=== PATIENT | female | born 1960 | race Caucasian/White ===

== ENCOUNTER → 2024-01-22 10:53 | Outpatient (REF) | payer OTHER, SELFPAY | LOC: HWWDC 10:53 | PROVIDERS: ATTENDING PHYSICIAN Nurse Practitioner Adult Health; FAMILY PHYSICIAN Internal Medicine | DX: Z12.31 Encounter for screening mammogram for malignant neoplasm of breast (principal) | CPT/HCPCS: 77063; 77067 ==

== ENCOUNTER → 2024-05-22 15:26 | Outpatient (REF) | payer OTHER, SELFPAY | LOC: PAVMRI 15:26 | PROVIDERS: ATTENDING PHYSICIAN Nurse Practitioner Adult Health | DX: S46.212A Strain of muscle, fascia and tendon of other parts of biceps, left arm, initial encounter (principal); M75.22 Bicipital tendinitis, left shoulder; M79.602 Pain in left arm | CPT/HCPCS: 73221 ==

== ENCOUNTER 2024-06-29 13:44 | Emergency (ER) | payer OTHER, SELFPAY ==
--- NOTE | 2024-06-29 14:47 | ED.GENMED ---
History of Present Illness
General
Chief Complaint: Abdominal Pain
Source: patient and spouse
Exam Limitations: none
Time Seen by Provider: 06/29/24 14:38
Nursing documentation reviewed up to this point in time: agreed with
History of Present Illness
History of Present Illness:
64-year-old female with history as documented presents to the emergency room for evaluation of abdominal pain. Patient reports onset of symptoms around 6 days ago and they have been constant and generally worsening since that time. Initially she
had achy pain left lower quadrant now has become more intense sharp pain. No clear triggering or relieving factors noted. Associated with anorexia and nausea but no vomiting. No diarrhea or constipation�had a normal bowel movement earlier today.
Denies any dysuria, hematuria, change in urinary frequency. She says that a few days ago she felt subjective fever but has not had fever/chills since. She denies any other complaints. She says that she had a similar episode earlier this year and
was treated empirically by her primary doctor for diverticulitis, does not believe she had CT scan at that time. She reports prior history of appendectomy. She notes that she had recent elective cosmetic procedure for fat transfer from abdomen to
face.
Past History
Past History
ED Past Medical History: None and Other (Status post appendectomy 2010, breast augmentation)
ED Past Surgical History: Appendectomy (2010) and Other (Breast augmentation)
Social History
Tobacco: Non-smoker
Alcohol: Occasional
Personal:
Living: with family
Employment: Employed (Nurse at [employer])
Family History
Family History: Other (Noncontributory)
Review of Systems
Review of Systems
All Other Systems: ROS reviewed and negative except as documented in HPI and ROS
Constitutional: Reports fatigue; Denies fever or chills
Respiratory: Denies trouble breathing
Cardiac: Denies chest pain or palpitations
ABD/GI: Reports abdominal pain, nausea and anorexia; Denies vomiting, diarrhea or constipated
: Denies dysuria, frequency or flank pain
Musculoskeletal: Denies neck pain or back pain
Neurological: Denies headache
Phy Exam
Physical Exam
Physical Exam:
General: Awake, alert, oriented x3; no acute distress
Head: Normocephalic, atraumatic
Eyes: Conjunctiva normal, sclera anicteric, some infraorbital bruising from recent cosmetic fat transfer procedure
Throat: Airway intact, handling secretions
Neck: Trachea midline, supple without meningismus
Lungs: Clear to auscultation bilaterally, no wheezing, rales, rhonchi
Heart: Regular rate and rhythm, no murmurs, gallops, or rubs
Abd: Soft, non distended, tender to palpation across lower abdomen left greater than right; no peritoneal signs or masses; she has a tiny umbilical superficial incision well-healed from recent cosmetic fat transfer procedure
Back: No CVA tenderness
Neuro: No gross deficits
Extremities: Warm and well-perfused
Scores
Heart Failure Risk
Heart Failure Risk Score: Not Applicable
Heart Score for Chest Pain Patients
STEMI patient?: Not applicable
Withdrawal Assessment of Alcohol
Withdrawal Assessment Completed?: Not applicable
Course
Orders/Labs/Results
Orders:
Orders
06/29/24 14:39
CT Abd/pelvis W Iv Cont Urgent
Comment:
Reason For Exam: LLQ abd pain
06/29/24 14:46
0.9% Sodium Chloride 1000 ml [Nss] 1,000 ml IV BOLUS
Ketorolac [Toradol] 15 mg IV NOW STA
06/29/24 15:20
Complete Blood Count/With Diff Urgent
Comprehensive Metabolic Panel Urgent
06/29/24 16:39
Urinalysis Reflex To Culture Urgent
Date Specimen was Collected: 06/29/24
Time Specimen was Collected: 16:28
06/29/24 17:15
Morphine Sulfate 4 mg IV NOW STA
06/29/24 17:16
Ciprofloxacin HCl [Cipro] 500 mg PO ONCE ONE
MetroNIDAZOLE [Flagyl] 500 mg PO NOW STA
Abnormal Lab Results
06/29/24
15:20
Hct 35.8 L %
(37.0-47.0)
MPV 10.5 H fL
(7.4-10.4)
Abs Immat Gran (auto) 0.1 H 10^3/uL
(0-0.05)
Absolute Monos (auto) 0.8 H 10^3/uL
(0.1-0.6)
Immature Gran % 1.5 H %
(0-0.5)
Lymphocytes % 18.7 L %
(20.5-51.1)
Glucose 103 H mg/dl
(70-99)
Total Protein 5.8 L g/dl
(6.3-8.2)
Albumin 3.3 L g/dl
(3.5-5.0)
06/29/24 15:20
06/29/24 15:20
Vital Signs
Initial and Last Documented VS:
Initial Vital Signs
Temp Pulse Resp Pulse Ox
36.7 C 94 18 98
06/29/24 13:54 06/29/24 13:54 06/29/24 13:54 06/29/24 13:54
Last Documented Vital Signs
Temp Pulse Resp BP Pulse Ox
36.7 C 94 18 102/64 100
06/29/24 13:54 06/29/24 13:54 06/29/24 13:54 06/29/24 15:00 06/29/24 15:30
MDM/Problems Addressed
Differential Diagnosis Includes:
Diverticulitis, nephrolithiasis, UTI, colitis
MDM/Problems Addressed:
64-year-old female presents to the emergency room for evaluation of left lower quadrant abdominal pain for the past 6 days. Generally worsening. Vital signs normal. Exam as above. Check labs including a CBC and a CMP, urinalysis. Check CT
abdomen and pelvis. Treat pain and provide fluids. Reassess at the above.
Labs reviewed: CBC and CMP unremarkable. Urinalysis negative for infection. CT abdomen pelvis shows acute uncomplicated diverticulitis. Treat with antibiotics. Clinical reassessment after Toradol only marginal improvement in pain still having
significant amount of pain. Will treat with morphine and reassess.
Patient's pain was well-controlled after morphine. Vitals have been stable. She does not appear to be septic. No signs of perforation or abscess on CT. Spoke to the patient I offered admission for treatment versus trial of outpatient antibiotics
and pain control. 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 She feels very comfortable with this. All questions answered.
*Radiology
Radiology exam reviewed: radiology read reviewed
*Pulse Oximetry
Patient hypoxic: no
*Critical Care Note
Total Time (30-74mins, 75-104mins- exclusive of procedures): Not Applicable
Data Reviewed
Source: patient, records and spouse
ED Attending Note
-
Portions of this chart may have been created with voice recognition software.� Occasional wrong word or��sound alike� substitutions may have occurred due to the inherent limitations of voice recognition software.
Discharge Plan
Departure
Patient Disposition: Home (Routine Discharge)
Date of Disposition: 06/29/24
Time of Disposition: 18:36
Patient with high blood pressure during this ER visit?: No
Discharge Problem:
Diverticulitis
Instructions: Diverticulitis (DC)
Prescriptions:
New
ciprofloxacin HCl 500 mg tablet
500 mg PO BID Qty: 20 0RF
metronidazole 500 mg tablet
500 mg PO TID Qty: 30 0RF
oxycodone 5 mg tablet
5 mg PO TID PRN (Reason: Pain) Qty: 14 0RF
No Action
multivitamin [One Daily Multivitamin] 1 EACH tablet
1 ea PO DAILY
ascorbate calcium (vitamin C) 500 MG tablet
500 mg PO DAILY
aspirin [Adult Aspirin Regimen] 81 MG tablet,delayed release (DR/EC)
81 mg PO DAILY
cholecalciferol (vitamin D3) [Vitamin D3] 1,000 UNIT capsule
1,000 unit PO DAILY
L.acidoph, paracasei,B. lactis 1 EACH capsule
1 cap PO DAILY
diclofenac sodium 75 MG tablet,delayed release (DR/EC)
75 mg PO BID Qty: 14 0RF
Referrals:
Shawn Carroll MD [Family Provider] - Follow up in 5-7 days
Activity Restrictions/Additional Instructions:
Thank you for visiting the Emergency Department at [facility].
1. Please schedule a follow up appointment as directed. Call first thing tomorrow morning to make an appointment.
2. If indicated, please take your medications as instructed and indicated on discharge paperwork.
3. If any of your symptoms do not improve, or persist, or become more severe within 6-12 hours, please return to the emergency department for further care.
4. Please return to the emergency department if you develop a headache, neck pain/stiffness, fever greater than 100.4F, chest pain, shortness of breath, persistent nausea, vomiting, slurred speech, difficulty walking, numbness/tingling, weakness,
signs of infection or any other symptoms that are worrisome to you.
Please call [phone] if you have any questions.
Discharge Date and Time
Print Language: LITHUANIAN
[2024-06-29 15:00] VITALS: BP 102/64
[2024-06-29] MEDS: NSS 1000 IV (15:00)
[2024-06-29] MEDS: TORADOL 15 MG IV (15:15)
[2024-06-29 15:28] LABS: % Basophils 0.4 % (0-2); % Eosinophils 2.4 % (0-6); % Immature Granulocytes 1.5 % (0-0.5); % Lymphocytes 18.7 % (20.5-51.1); % Monocytes 8.3 % (1.7-9.3); % Neutrophils 68.7 % (42.2-75.2); Absolute Eosinophils 0.2 10^3/uL (0-0.7); Absolute Immature Granulocytes 0.1 10^3/uL (0-0.05); Absolute Lymphocytes 1.7 10^3/uL (1.2-3.4); Absolute Monocytes 0.8 10^3/uL (0.1-0.6); Absolute Neutrophils 6.3 10^3/uL (1.4-6.5); Hematocrit 35.8 % (37.0-47.0); Hemoglobin 12.5 g/dL (12.0-16.0); Mean Corp Hgb Conc. 34.9 g/dL (33.0-37.0); Mean Corpuscular Hgb 29.1 pg (27.0-31.0); Mean Corpuscular Volume 83.3 fL (81.0-99.0); Mean Platelet Volume 10.5 fL (7.4-10.4); Nucleated Red Blood Cells % 0 %; Platelet Count 182 10^3/uL (130-400); Red Cell Dist. Width 13.8 % (11.5-14.5); White Blood Cell Count 9.2 10^3/uL (4.8-10.8)
[2024-06-29 15:51] LABS: ALT (SGPT) 20 U/L (0-35); AST (SGOT) 25 U/L (14-36); Albumin 3.3 g/dl (3.5-5.0); Alkaline Phosphatase 54 U/L (38-126); Blood Urea Nitrogen 14 mg/dl (7-17); Calcium 8.8 mg/dl (8.4-10.2); Carbon Dioxide 23 mmol/L (22-30); Chloride 104 mmol/L (98-107); Glucose 103 mg/dl (70-99); Potassium 3.8 mmol/L (3.5-5.1); Sodium 137 mmol/L (135-145); Total Bilirubin 0.7 mg/dl (0.2-1.3); Total Protein 5.8 g/dl (6.3-8.2); eGFR > 60.00
[2024-06-29 16:47] LABS: Urine Albumin Negative (Neg - Trace); Urine Bilirubin Negative (Negative); Urine Character Clear (Clear); Urine Color Yellow; Urine Glucose Negative (Negative); Urine Ketone Negative (Negative); Urine Leukocyte Negative (Negative); Urine Nitrite Negative (Negative); Urine Occult Blood Negative (Negative); Urine Specific Gravity 1.005 (<1.030); Urine Urobilinogen Negative (Neg - 1+)
[2024-06-29] MEDS: MORPHINE SULFATE 4 MG IV (18:03)
[2024-06-29] MEDS: CIPRO 500 MG PO (18:03)
[2024-06-29] MEDS: FLAGYL 500 MG PO (18:03)
[2024-06-29 18:12] VITALS: BP 106/56
== END 2024-06-29 18:59 | disposition home or self-care (01) ==
LOC: EMR 13:44
PROVIDERS: EMERGENCY PHYSICIAN Emergency Medicine; FAMILY PHYSICIAN Internal Medicine
DX: K57.32 Diverticulitis of large intestine without perforation or abscess without bleeding (principal)
CPT/HCPCS: 99285; 96374; 96375; 96361; 74177; 80053; 81003; 85025; Q9967

== ENCOUNTER → 2024-08-18 08:18 | Outpatient (REF) | payer OTHER, SELFPAY ==
[2024-08-18 09:57] LABS: Hematocrit 38.4 % (37.0-47.0); Hemoglobin 13.2 g/dL (12.0-16.0); Mean Corp Hgb Conc. 34.4 g/dL (33.0-37.0); Mean Corpuscular Hgb 29.7 pg (27.0-31.0); Mean Corpuscular Volume 86.5 fL (81.0-99.0); Mean Platelet Volume 10.3 fL (7.4-10.4); Platelet Count 190 10^3/uL (130-400); Red Blood Cell Count 4.44 10^6/uL (4.20-5.40); Red Cell Dist. Width 14.1 % (11.5-14.5); White Blood Cell Count 5.3 10^3/uL (4.8-10.8)
[2024-08-18 10:06] LABS: ALT (SGPT) 31 U/L (0-35); AST (SGOT) 41 U/L (14-36); Albumin 3.5 g/dl (3.5-5.0); Alkaline Phosphatase 38 U/L (38-126); Blood Urea Nitrogen 21 mg/dl (7-17); Calcium 9.4 mg/dl (8.4-10.2); Carbon Dioxide 25 mmol/L (22-30); Chloride 106 mmol/L (98-107); Glucose 87 mg/dl (70-99); HDL Cholesterol 51 mg/dl; LDL Cholesterol, Calculated 162 mg/dl; Potassium 4.4 mmol/L (3.5-5.1); Sodium 142 mmol/L (135-145); Total Bilirubin 0.8 mg/dl (0.2-1.3); Total Cholesterol 231 mg/dl (50-199); Triglyceride 91 mg/dl (10-149); Very Low Density Lipoprotein 18 mg/dl (0-30); eGFR > 60.00
[2024-08-18 10:34] LABS: TSH Reflex To Free T4 4.29 uIU/ml (0.47-4.68)
[2024-08-18 10:55] LABS: % Basophils 1.1 % (0-2); % Eosinophils 7.5 % (0-6); % Immature Granulocytes 0.2 % (0-0.5); % Lymphocytes 51.8 % (20.5-51.1); % Neutrophils 30.4 % (42.2-75.2); Absolute Basophils 0.1 10^3/uL (0-0.2); Absolute Eosinophils 0.4 10^3/uL (0-0.7); Absolute Lymphocytes 2.8 10^3/uL (1.2-3.4); Absolute Monocytes 0.5 10^3/uL (0.1-0.6); Absolute Neutrophils 1.6 10^3/uL (1.4-6.5); Nucleated Red Blood Cells % 0 %
== END ==
LOC: HWLAB 08:18
PROVIDERS: ATTENDING PHYSICIAN Nurse Practitioner Adult Health
DX: Z00.00 Encounter for general adult medical examination without abnormal findings (principal)
CPT/HCPCS: 36415; 80053; 80061; 84443; 85025

== ENCOUNTER → 2024-08-21 10:26 | Outpatient (REF) | payer OTHER, SELFPAY ==
[2024-08-21 12:20] LABS: % Basophils 1.3 % (0-2); % Eosinophils 9.5 % (0-6); % Immature Granulocytes 0.2 % (0-0.5); % Lymphocytes 45.7 % (20.5-51.1); % Monocytes 8.3 % (1.7-9.3); Absolute Basophils 0.1 10^3/uL (0-0.2); Absolute Eosinophils 0.6 10^3/uL (0-0.7); Absolute Lymphocytes 2.8 10^3/uL (1.2-3.4); Absolute Monocytes 0.5 10^3/uL (0.1-0.6); Absolute Neutrophils 2.2 10^3/uL (1.4-6.5); Hematocrit 39.3 % (37.0-47.0); Hemoglobin 13.4 g/dL (12.0-16.0); Mean Corp Hgb Conc. 34.1 g/dL (33.0-37.0); Mean Corpuscular Hgb 29.5 pg (27.0-31.0); Mean Corpuscular Volume 86.4 fL (81.0-99.0); Mean Platelet Volume 10.6 fL (7.4-10.4); Nucleated Red Blood Cells % 0 %; Platelet Count 189 10^3/uL (130-400); Red Blood Cell Count 4.55 10^6/uL (4.20-5.40); Red Cell Dist. Width 14.1 % (11.5-14.5); White Blood Cell Count 6.1 10^3/uL (4.8-10.8)
[2024-08-21 12:34] LABS: Creatine Phosphokinase 57 U/L (30-135)
[2024-08-21 12:39] LABS: C-Reactive Protein < 5.00 mg/L (0.0-10.00)
[2024-08-21 13:09] LABS: TSH Reflex To Free T4 5.07 uIU/ml (0.47-4.68)
[2024-08-21 13:39] LABS: Free T4 0.77 ng/dl (0.78-2.19)
[2024-08-21 13:48] LABS: Erythrocyte Sed Rate 16 mm/hour (0-20)
[2024-08-22 12:22] LABS: Lyme Antibody Screen, EIA Negative (Negative)
[2024-08-23 19:28] LABS: ANA, IgG Reflex to HEp-2 Detected (None Detected)
[2024-08-23 23:34] LABS: SSA 52 (Ro)(ENA) Ab, IgG 3 AU/mL (0-40); SSA 60 (Ro)(ENA) Ab, IgG 1 AU/mL (0-40); SSB (La)(ENA) Ab, IgG 0 AU/mL (0-40); Scleroderma Antibody (Scl-70) 1 AU/mL (0-40)
== END ==
LOC: HWLAB 10:26
PROVIDERS: ATTENDING PHYSICIAN Nurse Practitioner Adult Health
DX: M25.50 Pain in unspecified joint (principal); M79.10 Myalgia, unspecified site
CPT/HCPCS: 36415; 82550; 84439; 84443; 85025; 85652; 86038; 86140; 86235; 86430; 86618

== ENCOUNTER → 2024-09-04 12:08 | Outpatient (REF) | payer OTHER, SELFPAY ==
[2024-09-04 16:02] LABS: Free T4 0.89 ng/dl (0.78-2.19); Total Thyroxine 5.83 ug/dl (5.5-11.0)
[2024-09-04 16:15] LABS: TSH 6.25 uIU/ml (0.47-4.68)
[2024-09-06 18:34] LABS: Thyroglobulin Antibodies <0.9 IU/mL (0.0-4.0); Thyroid Peroxidase Ab (TPO) <0.3 IU/mL (0.0-9.0)
== END ==
LOC: HWLAB 12:08
PROVIDERS: ATTENDING PHYSICIAN Nurse Practitioner Adult Health
DX: R06.09 Other forms of dyspnea (principal); M25.50 Pain in unspecified joint; R79.89 Other specified abnormal findings of blood chemistry
CPT/HCPCS: 36415; 71046; 84436; 84439; 84443; 84481; 86376; 86430; 86800

== ENCOUNTER → 2024-10-23 10:51 | Outpatient (REF) | payer OTHER, SELFPAY ==
[2024-10-23 15:40] LABS: ALT (SGPT) 48 U/L (0-35); AST (SGOT) 58 U/L (14-36); Albumin 3.3 g/dl (3.5-5.0); Alkaline Phosphatase 57 U/L (38-126); Blood Urea Nitrogen 16 mg/dl (7-17); Calcium 9.1 mg/dl (8.4-10.2); Carbon Dioxide 26 mmol/L (22-30); Chloride 105 mmol/L (98-107); Glucose 78 mg/dl (70-99); Potassium 4.1 mmol/L (3.5-5.1); Sodium 136 mmol/L (135-145); Total Bilirubin 0.5 mg/dl (0.2-1.3); Total Protein 5.7 g/dl (6.3-8.2); eGFR > 60.00
[2024-10-23 15:43] LABS: C-Reactive Protein < 5.00 mg/L (0.0-10.00)
[2024-10-23 16:02] LABS: % Basophils 0.9 % (0-2); % Eosinophils 10.3 % (0-6); % Immature Granulocytes 0.5 % (0-0.5); % Lymphocytes 40.3 % (20.5-51.1); % Monocytes 6.5 % (1.7-9.3); % Neutrophils 41.5 % (42.2-75.2); Absolute Basophils 0.1 10^3/uL (0-0.2); Absolute Eosinophils 0.7 10^3/uL (0-0.7); Absolute Lymphocytes 2.6 10^3/uL (1.2-3.4); Absolute Monocytes 0.4 10^3/uL (0.1-0.6); Absolute Neutrophils 2.7 10^3/uL (1.4-6.5); Hematocrit 37.6 % (37.0-47.0); Hemoglobin 12.4 g/dL (12.0-16.0); Mean Corpuscular Volume 87.9 fL (81.0-99.0); Mean Platelet Volume 10.7 fL (7.4-10.4); Nucleated Red Blood Cells % 0 %; Platelet Count 185 10^3/uL (130-400); Red Blood Cell Count 4.28 10^6/uL (4.20-5.40); Red Cell Dist. Width 13.2 % (11.5-14.5); White Blood Cell Count 6.4 10^3/uL (4.8-10.8)
[2024-10-23 17:38] LABS: Erythrocyte Sed Rate 7 mm/hour (0-20)
[2024-10-26 06:59] LABS: ANA, IgG Reflex to HEp-2 Detected (None Detected)
[2024-10-26 07:04] LABS: CCP Antibody IgG/IgA 3 Units (0-19)
== END ==
LOC: HWLAB 10:51
PROVIDERS: ATTENDING PHYSICIAN Physician Assistant; FAMILY PHYSICIAN Internal Medicine
DX: M25.50 Pain in unspecified joint (principal); M47.899 Other spondylosis, site unspecified; R76.8 Other specified abnormal immunological findings in serum; Z87.19 Personal history of other diseases of the digestive system
CPT/HCPCS: 36415; 80053; 85025; 85652; 86038; 86140; 86200; 86812

== ENCOUNTER → 2024-11-13 10:33 | Outpatient (REF) | payer OTHER, SELFPAY ==
[2024-11-13 11:49] LABS: % Basophils 0.7 % (0-2); % Eosinophils 2.9 % (0-6); % Immature Granulocytes 0.2 % (0-0.5); % Lymphocytes 15.7 % (20.5-51.1); % Monocytes 3.2 % (1.7-9.3); % Neutrophils 77.3 % (42.2-75.2); Absolute Basophils 0.1 10^3/uL (0-0.2); Absolute Eosinophils 0.3 10^3/uL (0-0.7); Absolute Lymphocytes 1.4 10^3/uL (1.2-3.4); Absolute Monocytes 0.3 10^3/uL (0.1-0.6); Absolute Neutrophils 6.8 10^3/uL (1.4-6.5); Hematocrit 36.9 % (37.0-47.0); Hemoglobin 12.1 g/dL (12.0-16.0); Mean Corp Hgb Conc. 32.8 g/dL (33.0-37.0); Mean Corpuscular Volume 88.5 fL (81.0-99.0); Mean Platelet Volume 10.3 fL (7.4-10.4); Nucleated Red Blood Cells % 0 %; Platelet Count 251 10^3/uL (130-400); Red Blood Cell Count 4.17 10^6/uL (4.20-5.40); Red Cell Dist. Width 13.8 % (11.5-14.5); White Blood Cell Count 8.8 10^3/uL (4.8-10.8)
[2024-11-13 12:24] LABS: Urine Albumin Negative (Neg - Trace); Urine Bilirubin Negative (Negative); Urine Character Clear (Clear); Urine Color Yellow; Urine Glucose Negative (Negative); Urine Ketone Negative (Negative); Urine Leukocyte Negative (Negative); Urine Nitrite Negative (Negative); Urine Occult Blood Negative (Negative); Urine Specific Gravity 1.025 (<1.030); Urine Urobilinogen Negative (Neg - 1+)
[2024-11-13 12:42] LABS: ALT (SGPT) 21 U/L (0-35); AST (SGOT) 22 U/L (14-36); Albumin 4.1 g/dl (3.5-5.0); Alkaline Phosphatase 57 U/L (38-126); Blood Urea Nitrogen 15 mg/dl (7-17); Calcium 9.1 mg/dl (8.4-10.2); Carbon Dioxide 24 mmol/L (22-30); Chloride 104 mmol/L (98-107); Glucose 60 mg/dl (70-99); Sodium 137 mmol/L (135-145); Total Bilirubin 0.7 mg/dl (0.2-1.3); Total Protein 6.3 g/dl (6.3-8.2); eGFR > 60.00
[2024-11-13 12:44] LABS: C-Reactive Protein < 5.00 mg/L (0.0-10.00)
[2024-11-13 13:07] LABS: Creatine Phosphokinase 55 U/L (30-135)
[2024-11-13 13:26] LABS: Erythrocyte Sed Rate 9 mm/hour (0-20)
[2024-11-13 14:19] LABS: Urine Protein < 5 mg/dl
[2024-11-13 16:22] LABS: Complement C3 83 mg/dl (88-165)
[2024-11-13 20:36] LABS: Hepatitis B Surface Antigen Negative (Negative)
[2024-11-13 20:55] LABS: Hepatitis B Core Ab, Total Negative (Negative); Hepatitis B Surface Antibody Positive; Hepatitis C Antibody Negative (Negative)
[2024-11-14 17:59] LABS: Thyroglobulin 21.4 ng/mL (1.3-31.8); Thyroglobulin Antibodies <0.9 IU/mL (0.0-4.0)
[2024-11-15 02:08] LABS: Beta-2-Glycoprotein I Ab. IgA <10 SAU (<=20); Beta-2-Glycoprotein I Ab. IgG <10 SGU (<=20); Beta-2-Glycoprotein I Ab. IgM <10 SMU (<=20)
[2024-11-15 02:30] LABS: Phosphatidylserine Ab, IgA 0 APS (0-19); Phosphatidylserine Ab, IgG 4 GPS (0-15); Phosphatidylserine Ab, IgM 4 MPS (0-21)
[2024-11-15 08:36] LABS: Cardiolipin IgA Antibody <10 APL (<=11); Cardiolipin IgM Antibody <10 MPL (<=12); Cardiolipin Igg Antibody <10 GPL (<=14)
[2024-11-15 15:12] LABS: Quantiferon Mitogen minus NIL 2.85 IU/mL; Quantiferon TB Gold Plus Negative (Negative)
== END ==
LOC: REG 10:33
PROVIDERS: ATTENDING PHYSICIAN Student in an Organized Health Care Education/Training Program; FAMILY PHYSICIAN Internal Medicine
DX: M25.50 Pain in unspecified joint (principal); M25.60 Stiffness of unspecified joint, not elsewhere classified; R06.02 Shortness of breath; R76.8 Other specified abnormal immunological findings in serum; Z87.19 Personal history of other diseases of the digestive system
CPT/HCPCS: 36415; 80053; 81003; 82550; 82570; 84156; 84432; 85025; 85652; 86140; 86146; 86147; 86148; 86160; 86480; 86704; 86706; 86800; 86803; 87340

== ENCOUNTER → 2024-12-04 12:39 | Outpatient (REF) | payer OTHER, SELFPAY | LOC: HWRAD 12:39 | PROVIDERS: ATTENDING PHYSICIAN Nurse Practitioner Adult Health; FAMILY PHYSICIAN Internal Medicine | DX: Q52.4 Other congenital malformations of vagina (principal) | CPT/HCPCS: 76830; 76856 ==

== ENCOUNTER → 2025-01-22 10:04 | Outpatient (REF) | payer OTHER, SELFPAY | LOC: HWWDC 10:04 | PROVIDERS: ATTENDING PHYSICIAN Nurse Practitioner Adult Health; FAMILY PHYSICIAN Nurse Practitioner Adult Health | DX: Z12.31 Encounter for screening mammogram for malignant neoplasm of breast (principal) | CPT/HCPCS: 77063; 77067 ==

== ENCOUNTER → 2025-01-30 15:38 | Outpatient (REF) | payer OTHER, SELFPAY ==
[2025-01-30 16:29] LABS: % Eosinophils 5.8 % (0-6); % Immature Granulocytes 0.1 % (0-0.5); % Lymphocytes 38.4 % (20.5-51.1); % Neutrophils 48.7 % (42.2-75.2); Absolute Basophils 0.1 10^3/uL (0-0.2); Absolute Eosinophils 0.4 10^3/uL (0-0.7); Absolute Lymphocytes 2.6 10^3/uL (1.2-3.4); Absolute Monocytes 0.4 10^3/uL (0.1-0.6); Absolute Neutrophils 3.3 10^3/uL (1.4-6.5); Hemoglobin 14.4 g/dL (12.0-16.0); Mean Corp Hgb Conc. 34.3 g/dL (33.0-37.0); Mean Corpuscular Hgb 29.6 pg (27.0-31.0); Mean Corpuscular Volume 86.2 fL (81.0-99.0); Mean Platelet Volume 9.9 fL (7.4-10.4); Nucleated Red Blood Cells % 0 %; Platelet Count 247 10^3/uL (130-400); Red Blood Cell Count 4.87 10^6/uL (4.20-5.40); Red Cell Dist. Width 13.5 % (11.5-14.5); White Blood Cell Count 6.7 10^3/uL (4.8-10.8)
[2025-01-30 16:33] LABS: Urine Albumin Negative (Neg - Trace); Urine Bilirubin Negative (Negative); Urine Character Clear (Clear); Urine Color Yellow; Urine Glucose Negative (Negative); Urine Ketone Negative (Negative); Urine Leukocyte Negative (Negative); Urine Nitrite Negative (Negative); Urine Occult Blood Negative (Negative); Urine Urobilinogen Negative (Neg - 1+)
[2025-01-30 16:45] LABS: Erythrocyte Sed Rate 2 mm/hour (0-20)
[2025-01-30 17:18] LABS: ALT (SGPT) 26 U/L (0-35); AST (SGOT) 30 U/L (14-36); Alkaline Phosphatase 52 U/L (38-126); Blood Urea Nitrogen 20 mg/dl (7-17); Calcium 9.6 mg/dl (8.4-10.2); Carbon Dioxide 27 mmol/L (22-30); Chloride 104 mmol/L (98-107); Glucose 87 mg/dl (70-99); Potassium 4.6 mmol/L (3.5-5.1); Sodium 139 mmol/L (135-145); Total Bilirubin 0.5 mg/dl (0.2-1.3); Total Protein 6.7 g/dl (6.3-8.2); eGFR > 60.00
[2025-01-30 17:21] LABS: Urine Protein < 5 mg/dl
[2025-01-30 17:23] LABS: C-Reactive Protein < 5.00 mg/L (0.0-10.00)
[2025-01-30 17:25] LABS: Complement C3 96 mg/dl (88-165)
[2025-01-30 17:53] LABS: TSH Reflex To Free T4 8.58 uIU/ml (0.47-4.68)
[2025-01-30 18:33] LABS: Free T4 1.27 ng/dl (0.78-2.19)
== END ==
LOC: REG 15:38
PROVIDERS: ATTENDING PHYSICIAN Student in an Organized Health Care Education/Training Program; FAMILY PHYSICIAN Nurse Practitioner Adult Health
DX: M25.50 Pain in unspecified joint (principal); M25.60 Stiffness of unspecified joint, not elsewhere classified; R06.02 Shortness of breath; R76.8 Other specified abnormal immunological findings in serum; Z87.19 Personal history of other diseases of the digestive system; R00.2 Palpitations
CPT/HCPCS: 80053; 81003; 82570; 84156; 84439; 84443; 85025; 85652; 86140; 86141; 86160; 86225; 86235

== ENCOUNTER → 2025-02-20 09:58 | Outpatient (REF) | payer OTHER, SELFPAY | LOC: HWRCS 09:58 | PROVIDERS: ATTENDING PHYSICIAN Nurse Practitioner Adult Health | DX: R00.2 Palpitations (principal); R06.09 Other forms of dyspnea | CPT/HCPCS: 93306 ==

== ENCOUNTER → 2025-02-24 09:01 | Outpatient (REF) | payer OTHER, SELFPAY | LOC: RCS 09:01 | PROVIDERS: ATTENDING PHYSICIAN Nurse Practitioner Adult Health | DX: R00.2 Palpitations (principal) | CPT/HCPCS: 93225; 93226 ==

== ENCOUNTER → 2025-02-26 09:33 | Outpatient (REF) | payer OTHER, SELFPAY ==
[2025-02-26 11:53] LABS: TSH Reflex To Free T4 5.32 uIU/ml (0.47-4.68)
[2025-02-26 12:21] LABS: Free T4 1.55 ng/dl (0.78-2.19)
== END ==
LOC: REG 09:33
PROVIDERS: ATTENDING PHYSICIAN Nurse Practitioner Adult Health
DX: E03.8 Other specified hypothyroidism (principal)
CPT/HCPCS: 36415; 84439; 84443

== ENCOUNTER → 2025-03-13 10:08 | Outpatient (REF) | payer OTHER, SELFPAY ==
[2025-03-13 16:02] LABS: Cortisol, Random 1.1 ug/dl
[2025-03-13 16:42] LABS: TSH Reflex To Free T4 5.96 uIU/ml (0.47-4.68)
[2025-03-13 17:16] LABS: Free T4 1.32 ng/dl (0.78-2.19)
== END ==
LOC: REG 10:08
PROVIDERS: ATTENDING PHYSICIAN Nurse Practitioner Adult Health
DX: E03.8 Other specified hypothyroidism (principal); R00.2 Palpitations; R06.09 Other forms of dyspnea; R94.2 Abnormal results of pulmonary function studies; M25.50 Pain in unspecified joint; R53.82 Chronic fatigue, unspecified; Z13.89 Encounter for screening for other disorder
CPT/HCPCS: 36415; 82533; 84439; 84443

== ENCOUNTER 2025-04-01 08:27 | Outpatient (RCR) | payer OTHER, SELFPAY ==
[2025-04-01 08:40] VITALS: BP 103/61
[2025-04-01] MEDS: CORTROSYN 1 MG IV (09:20)
[2025-04-01 09:37] LABS: D-Dimer < 0.27 ug/mlFEU (0.00-0.50)
[2025-04-01 10:11] LABS: ACTH Stim Cortisol 0 Min 1.1 ug/dl
[2025-04-01 10:55] LABS: ACTH Stim Cortisol 30 Min 5.7 ug/dl
[2025-04-01 11:36] LABS: ACTH Stim Cortisol 60 Min 7.1 ug/dl
== END 2025-04-01 15:24 | disposition home or self-care (01) ==
LOC: OID 08:27
PROVIDERS: ATTENDING PHYSICIAN Internal Medicine Critical Care Medicine
DX: R79.89 Other specified abnormal findings of blood chemistry (principal); R53.81 Other malaise; R06.02 Shortness of breath; R76.8 Other specified abnormal immunological findings in serum; R94.2 Abnormal results of pulmonary function studies
CPT/HCPCS: 82533; 85379; 96374

== ENCOUNTER → 2025-05-20 07:40 | Outpatient (REF) | payer OTHER, SELFPAY | LOC: MRI 07:40 | PROVIDERS: ATTENDING PHYSICIAN Nurse Practitioner Family; FAMILY PHYSICIAN Nurse Practitioner Adult Health | DX: E27.40 Unspecified adrenocortical insufficiency (principal) | CPT/HCPCS: 70553; A9575 ==

== ENCOUNTER → 2025-07-23 10:17 | Outpatient (REF) | payer OTHER, SELFPAY | LOC: HWRCS 10:17 | PROVIDERS: ATTENDING PHYSICIAN Internal Medicine Cardiovascular Disease; FAMILY PHYSICIAN Nurse Practitioner Adult Health | DX: I31.39 Other pericardial effusion (noninflammatory) (principal) | CPT/HCPCS: 93308 ==

== ENCOUNTER → 2025-08-18 07:33 | Outpatient (REF) | payer OTHER, SELFPAY ==
[2025-08-18 08:43] LABS: Hematocrit 40.4 % (37.0-47.0); Hemoglobin 13.8 g/dL (12.0-16.0); Mean Corp Hgb Conc. 34.2 g/dL (33.0-37.0); Mean Corpuscular Volume 87.3 fL (81.0-99.0); Nucleated Red Blood Cells % 0 %; Platelet Count 220 10^3/uL (130-400); Red Cell Dist. Width 12.6 % (11.5-14.5)
[2025-08-18 09:09] LABS: ALT (SGPT) 23 U/L (0-35); AST (SGOT) 28 U/L (14-36); Albumin 3.8 g/dl (3.5-5.0); Alkaline Phosphatase 47 U/L (38-126); Blood Urea Nitrogen 33 mg/dl (7-17); Calcium 9.2 mg/dl (8.4-10.2); Carbon Dioxide 28 mmol/L (22-30); Chloride 106 mmol/L (98-107); Glucose 83 mg/dl (70-99); HDL Cholesterol 57 mg/dl; LDL Cholesterol, Calculated 183 mg/dl; Potassium 4.4 mmol/L (3.5-5.1); Sodium 139 mmol/L (135-145); Total Protein 6.5 g/dl (6.3-8.2); Very Low Density Lipoprotein 16 mg/dl (0-30); eGFR > 60.00
== END ==
LOC: REG 07:33
PROVIDERS: ATTENDING PHYSICIAN Nurse Practitioner Adult Health
DX: Z00.00 Encounter for general adult medical examination without abnormal findings (principal)
CPT/HCPCS: 36415; 80053; 80061; 84439; 84443; 85025